=== PATIENT | female | born 1950 | race Caucasian/White ===

== ENCOUNTER 2018-12-04 19:20 | Inpatient (IN) | payer OTHER ==
[~2018-12-04] VITALS: Ht 157.5 cm; Wt 48.5 kg
--- OUTSIDE RECORDS SUMMARY | 2018-12-04 19:22 | XMS REPORT ---
Author Author [facility] Address Unknown Phone Unavailable Care Team Providers Care Dental Technician Instructor Name Role Phone Unavailable Unavailable Problems This patient has no known problems. Allergies, Adverse Reactions, Alerts This patient has no known allergies or adverse reactions. Medications This patient has no known medications. Results Test Description Test Time Test Comments Text Results Atomic Results Result Comments POC G3+ Art 2018-10-25 08:52:18 pH Art (test code=pH Art) 7.38 pH units 7.35-7.45 pCO2 Art (test code=pCO2 Art) 53.0 mmHg 35.0-45.0 pO2 Art (test code=pO2 Art) 65.0 mmHg 85.0-100.0 O2 Sat Art (test code=O2 Sat Art) 92.0 % 92.0-98.5 HCO3 Art (test code=HCO3 Art) 31.7 mmol/L 22.0-26.0 FIO2% (test code=FIO2%) 32.0 % Base Excess Arterial (test code=Base Excess Arterial) 7 mmol/L -2-2 Anders's Test (test code=Anders's Test) Pass Pass Del Sys (test code=Del Sys) Nasal Can Flow (LPM) (test code=Flow (LPM)) 3.0 Performing Site (test code=Performing Site) R Radial XR Chest 2 [id number] 08:44:00Patient: COREY OLIVAS Date/Time10/25/2018 08:34 CDTReason for ExamcopdReportRation: Dyspnea, hypertension and COPDChest 2 viewsIn comparison to prior chest x-ray dated 11/11/2017 bilateral pulmonary hyperexpansion and pleural parenchymal scarring is again noted. The heart is within normal limits in size. Pulmonary vascularity is normal. Partially calcified thoracic aorta is identified. A large hiatal hernia is again demonstrated. 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 COPD2. Bilateral pleural parenchymal scarring3. Large hiatal hernia; no significant interval change. Final Dictated by: MD Delacruz Gustavo MDictated DT/TM: 10/25/2018 8:42 amSigned by: MD Delacruz Gustavo MSigned (Electronic Signature): 10/25/2018 8:44 amER SCREEN FOR HIV 1/2 2018-04-16 12:29:00* Test Item Value Reference Range Comments HIV 1/2 AB (test code=SCRN HIV) NONREACTIVE NONREACTIVE This test is used for SCREENING purposes only. All reactive results are prelimenary and confirmation results will follow. BLOOD [id number] 06:41:00* Test Item Value Reference Range Comments Report Text (test code=Report Text) LOT 2018-04-101646 Report Text7 (test code=Report Text7) BLOOD CULTURES HELD FOR 5 DAYS BEFORE FINAL Report Text8 (test code=Report Text8) Report Text9 (test code=Report Text9) [employer] SUGGESTS THAT Report Text10 (test code=Report Text10) MOST CASES OF BACTEREMIA ARE DETECTED BY USING Report Text11 (test code=Report Text11) THREE SETS OF SEPARATELY COLLECTED BLOOD CULTURES. Report Text12 (test code=Report Text12) LOT [id number] Report Text13 (test code=Report Text13) CONVERSELY, A SINGLE BLOOD CULTURE MAY MISS Report Text14 (test code=Report Text14) INTERMITTENTLY OCCURRING BACTEREMIA AND MAKE Report Text15 (test code=Report Text15) IT DIFFICULT TO INTERPRET THE CLINICAL Report Text16 (test code=Report Text16) SIGNIFICANCE OF CERTAIN ISOLATED ORGANISMS. Report Text17 (test code=Report Text17) Report Text18 (test code=Report Text18) LOT [id number] Report Text19 (test code=Report Text19) COLLECTION SITE UNSPECIFIED Report Text20 (test code=Report Text20) DMB 2018-04-11 1138 Report Text21 (test code=Report Text21) NO GROWTH WITHIN 1 DAY Report Text22 (test code=Report Text22) PRELIMINARY REPORT Report Text23 (test code=Report Text23) Report Text24 (test code=Report Text24) CAN 2018-04-12 756 Report Text25 (test code=Report Text25) NO GROWTH WITHIN 2 DAYS Report Text26 (test code=Report Text26) PRELIMINARY REPORT Report Text27 (test code=Report Text27) Report Text28 (test code=Report Text28) J 2018-04-15 641 Report Text29 (test code=Report Text29) NO GROWTH WITHIN 5 DAYS Report Text30 (test code=Report Text30) FINAL REPORT BLOOD [id number] 06:41:00* Test Item Value Reference Range Comments Report Text (test code=Report Text) LOT 2018-04-101646 Report Text7 (test code=Report Text7) BLOOD CULTURES HELD FOR 5 DAYS BEFORE FINAL Report Text8 (test code=Report Text8) Report Text9 (test code=Report Text9) [employer] SUGGESTS THAT Report Text10 (test code=Report Text10) MOST CASES OF BACTEREMIA ARE DETECTED BY USING Report Text11 (test code=Report Text11) THREE SETS OF SEPARATELY COLLECTED BLOOD CULTURES. Report Text12 (test code=Report Text12) LOT [id number] Report Text13 (test code=Report Text13) CONVERSELY, A SINGLE BLOOD CULTURE MAY MISS Report Text14 (test code=Report Text14) INTERMITTENTLY OCCURRING BACTEREMIA AND MAKE Report Text15 (test code=Report Text15) IT DIFFICULT TO INTERPRET THE CLINICAL Report Text16 (test code=Report Text16) SIGNIFICANCE OF CERTAIN ISOLATED ORGANISMS. Report Text17 (test code=Report Text17) Report Text18 (test code=Report Text18) LOT 2018-04-10 1649 Report Text19 (test code=Report Text19) COLLECTION SITE UNSPECIFIED Report Text20 (test code=Report Text20) DMB 2018-04-11 1138 Report Text21 (test code=Report Text21) NO GROWTH WITHIN 1 DAY Report Text22 (test code=Report Text22) PRELIMINARY REPORT Report Text23 (test code=Report Text23) Report Text24 (test code=Report Text24) CAN 2018-04-12 756 Report Text25 (test code=Report Text25) NO GROWTH WITHIN 2 DAYS Report Text26 (test code=Report Text26) PRELIMINARY REPORT Report Text27 (test code=Report Text27) Report Text28 (test code=Report Text28) [facility] 2018-04-15 641 Report Text29 (test code=Report Text29) NO GROWTH WITHIN 5 DAYS Report Text30 (test code=Report Text30) FINAL REPORT ABDOMEN 2 [id number] 07:42:00[address] [id number] IMAGING REPORTPatient Name: COREY OLIVAS of Service: [id number]: 67 Sex: F Order #: [id number] Room: [facility] 2NDOB: 1950 X-Ray Number: [id number] Record Number: [id number] Hospital Number: [id number] Physician: JUSTO SYEDOrdering Physician: Brandie HARE.History: Abdomen pain.Technique: 3 supine and upright abdominal projections were obtained andreviewed.Findings:There is no specific acute appearing abdominal abnormality.There is moderate distal fecal stasis.There is no evidence to suggest obstruction or free air.The osseous structures appear intact.Impression:Moderate distal fecal stasis.Electronically Signed By: Atilio Zuniga M.D., 04/11/2018 7:39 AMLegally authenticated by CAREN Rahman 2018-04-11 07:39:46ISTAT CHEM [id number] 06:30:00* Test Item Value Reference Range Comments ISTATNA (test code=ISTATNA) 137 MMOL/L 137-145 ISTATK (test code=ISTATK) 3.8 MMOL/L 3.6-5.0 ISTATCL (test code=ISTATCL) 92 MMOL/L 98-107 ISTIONCA (test code=ISTIONCA) 1.14 MMOL/L 1.12-1.32 ISTCO2 (test code=ISTCO2) 36 MMOL/L 22-30 ISTATGLU (test code=ISTATGLU) 86 MG/DL 65-110 ISTATBUN (test code=ISTATBUN) 19.0 MG/DL 7.0-20.0 ISTCREA (test code=ISTCREA) 0.8 MG/DL 0.7-1.5 ISTATHCT (test code=ISTATHCT) 40 %PCV 37.0-52.0 ISTATHGB (test code=ISTATHGB) 13.6 G/DL 12.0-18.0 ISTANGAP (test code=ISTANGAP) 14 MMOL/L BG LAB ARTERIAL [id number] 16:54:00* Test Item Value Reference Range Comments SITE (test code=SITE) RBRAC SITE ALLENS (test code=ALLENS) N/A BGLAC (test code=BGLAC) 10.0 mg/dL 5.0-18.0 HEPATITIS C ANTIBODY [id number] 14:57:00* Test Item Value Reference Range Comments SCRN HCV (test code=SCRN HCV) NEGATIVE NEGATIVE Hepatitis C Antibody test is for screening purposes only. All reactives will be confirmed by additional testing. [id number] 14:11:00* Test Item Value Reference Range Comments WBC (test code=WBC) 9.3 K/UL 3.5-10.9 RBC (test code=RBC) 4.13 M/UL 4.0-5.0 HGB (test code=HGB) 12.7 G/DL 11.5-15.5 HCT (test code=HCT) 38.8 % 34-46 MCV (test code=MCV) 93.9 FL 80-98 MCH (test code=MCH) 30.8 PG 28-32 MCHC (test code=MCHC) 32.7 G/DL 32.5-36.5 RDW (test code=RDW) 13.1 % 11.5-14.5 PLT (test code=PLT) 236 K/UL 150-450 MPV (test code=MPV) 10.0 FL 7.4-10.4 MANDIFF (test code=MANDIFF) NO SCAN (test code=SCAN) NO NEUT% (test code=NEUT%) 76.6 % 40-75 LYMPH% (test code=LYMPH%) 13.0 % 24-44 MONO% (test code=MONO%) 8.5 % 0-13 EOS% (test code=EOS%) 1.4 % 0-4 BASO % (test code=BASO%) 0.1 % 0-2 IG (test code=IG) 0 % 0-1 IG% (test code=IG%) 0.4 % 0-1 IG%=Metamyelocytes, Myelocytes, and Promyelocytes. (Immature neutrophils not including "bands".) > 3% IG indicates risk of sepsis NRBC% (test code=NRBC%) 0 /100 WBC ABS NEUT (test code=NEUT) 7.1 K/UL 1.2-7.2 CHEST 1 VIEW [id number] 14:04:00BA[address] [id number] IMAGING REPORTPatient Name: COREY OLIVAS Anuja of Service: [id number]: 67 Sex: F Order #: [id number] [facility]1951 X-Ray Number: [id number] Record Number: [id number] Hospital Number: [id number] Physician: Sapna COSTA Physician: JH ERICKSONHISTORY: Cough without fever. . Cough. Shortness of breath.COMPARISON: 03/11/2018TECHNIQUE: Portable chest 1 viewFINDINGS:The patient is rotated to the right. The cardiac silhouette is uppernormal. The lungs are hyperexpanded with background changes of COPD. Thereis atherosclerosis of the aortic arch. There is fusion hardware within themid thoracic spine.IMPRESSION:Background changes of COPD without acute abnormality. Electronically Signed By: Fredy Fagan M.D., 04/10/2018 2:01 PMLegally authent icated by JOSELINE HERNANDEZ 2018-04-10 14:01:33BG LAB ARTERIAL [id number] 13:25:00* Test Item Value Reference Range Comments SITE (test code=SITE) LEFT RAD SITE ALLENS (test code=ALLENS) POS BGLAC (test code=BGLAC) 7 mg/dL 5.0-18.0 BLOOD GAS [id number] 13:22:00* Test Item Value Reference Range Comments SITE (test code=SITE) LEFT RAD SITE ALLENS (test code=ALLENS) POS O2 EQUIP (test code=O2 EQUIP) NASAL CANNULA O2-DEVICE L/M (test code=L/M) 3 L/M PH (test code=BGPH) 7.43 7.35-7.45 PCO2 (test code=PCO2) 50 MMHG 34.0-45.0 PO2 (test code=PO2) 99 MMHG 79-87 HCO3 (test code=HCO3) 33.2 mmol/L 22.0-26.0 BE (test code=BE) 7.6 mmol/L -2.0-2.0 THB (test code=THB) 11.6 G/DL 12-16 % 02 HB (test code=ABGSAT) 95.8 % 96.0-100.0 %COHB (test code=BGCO) 1.2 % <1.5 % MET HB (test code=%MET HB) 0.9 % 0.4-1.5 CAO2 (test code=CAO2) 15.8 VOL% 15.7-21.6 PF/RATIO (test code=PF/RATIO) 330.0 BLOOD [id number] 07:46:00* Test Item Value Reference Range Comments Report Text (test code=Report Text) [facility] 2018-03-11 345 Report Text7 (test code=Report Text7) BLOOD CULTURES HELD FOR 5 DAYS BEFORE FINAL Report Text8 (test code=Report Text8) Report Text9 (test code=Report Text9) [employer] SUGGESTS THAT Report Text10 (test code=Report Text10) MOST CASES OF BACTEREMIA ARE DETECTED BY USING Report Text11 (test code=Report Text11) THREE SETS OF SEPARATELY COLLECTED BLOOD CULTURES. Report Text12 (test code=Report Text12) [facility] 2018-03-11 346 Report Text13 (test code=Report Text13) CONVERSELY, A SINGLE BLOOD CULTURE MAY MISS Report Text14 (test code=Report Text14) INTERMITTENTLY OCCURRING BACTEREMIA AND MAKE Report Text15 (test code=Report Text15) IT DIFFICULT TO INTERPRET THE CLINICAL Report Text16 (test code=Report Text16) SIGNIFICANCE OF CERTAIN ISOLATED ORGANISMS. Report Text17 (test code=Report Text17) Report Text18 (test code=Report Text18) [facility] 2018-03-11 347 Report Text19 (test code=Report Text19) DRAWN FROM RIGHT HAND Report Text20 (test code=Report Text20) Report Text21 (test code=Report Text21) [facility] 2018-03-12 634 Report Text22 (test code=Report Text22) NO GROWTH WITHIN 1 DAY Report Text23 (test code=Report Text23) PRELIMINARY REPORT Report Text24 (test code=Report Text24) Report Text25 (test code=Report Text25) [facility] 2018-03-13 632 Report Text26 (test code=Report Text26) NO GROWTH WITHIN 2 DAYS Report Text27 (test code=Report Text27) PRELIMINARY REPORT Report Text28 (test code=Report Text28) Report Text29 (test code=Report Text29) [facility] 2018-03-16 746 Report Text30 (test code=Report Text30) NO GROWTH WITHIN 5 DAYS Report Text31 (test code=Report Text31) FINAL REPORT ER SCREEN FOR HIV 09:56:00* Test Item Value Reference Range Comments HIV 1/2 AB (test code=SCRN HIV) NONREACTIVE NONREACTIVE This test is used for SCREENING purposes only. All reactive results are prelimenary and confirmation results will follow. BLOOD [id number] 09:54:00* Test Item Value Reference Range Comments Report Text (test code=Report Text) [facility] 2018-03-11 345 Report Text7 (test code=Report Text7) BLOOD CULTURES HELD FOR 5 DAYS BEFORE FINAL Report Text8 (test code=Report Text8) Report Text9 (test code=Report Text9) [employer] SUGGESTS THAT Report Text10 (test code=Report Text10) MOST CASES OF BACTEREMIA ARE DETECTED BY USING Report Text11 (test code=Report Text11) THREE SETS OF SEPARATELY COLLECTED BLOOD CULTURES. Report Text12 (test code=Report Text12) [facility] 2018-03-11 346 Report Text13 (test code=Report Text13) CONVERSELY, A SINGLE BLOOD CULTURE MAY MISS Report Text14 (test code=Report Text14) INTERMITTENTLY OCCURRING BACTEREMIA AND MAKE Report Text15 (test code=Report Text15) IT DIFFICULT TO INTERPRET THE CLINICAL Report Text16 (test code=Report Text16) SIGNIFICANCE OF CERTAIN ISOLATED ORGANISMS. Report Text17 (test code=Report Text17) Report Text18 (test code=Report Text18) [facility] 2018-03-11 347 Report Text19 (test code=Report Text19) DRAWN FROM LEFT FOREARM Report Text20 (test code=Report Text20) Report Text21 (test code=Report Text21) [facility] 2018-03-12 634 Report Text22 (test code=Report Text22) NO GROWTH WITHIN 1 DAY Report Text23 (test code=Report Text23) PRELIMINARY REPORT Report Text24 (test code=Report Text24) Report Text25 (test code=Report Text25) [facility] 2018-03-13 954 Report Text26 (test code=Report Text26) Report Text27 (test code=Report Text27) 2 BLOOD CULTURE BOTTLES WERE COLLECTED, ONLY Report Text28 (test code=Report Text28) ONE BOTTLE IS POSITIVE FOR GROWTH Report Text29 (test code=Report Text29) Report Text30 (test code=Report Text30) [facility] 2018-03-13 955 Report Text31 (test code=Report Text31) COAGULASE NEGATIVE STAPHYLOCOCCUS ISOLATED Report Text32 (test code=Report Text32) CONSIDERED CONTAMINATION, NO SENSITIVITY Report Text33 (test code=Report Text33) PERFORMED. FINAL REPORT ISTAT CHEM [id number] 13:45:00* Test Item Value Reference Range Comments ISTATNA (test code=ISTATNA) 143 MMOL/L 137-145 ISTATK (test code=ISTATK) 3.5 MMOL/L 3.6-5.0 ISTATCL (test code=ISTATCL) 99 MMOL/L 98-107 ISTIONCA (test code=ISTIONCA) 1.12 MMOL/L 1.12-1.32 ISTCO2 (test code=ISTCO2) 32 MMOL/L 22-30 ISTATGLU (test code=ISTATGLU) 116 MG/DL 65-110 ISTATBUN (test code=ISTATBUN) 21.0 MG/DL 7.0-20.0 ISTCREA (test code=ISTCREA) 0.8 MG/DL 0.7-1.5 ISTATHCT (test code=ISTATHCT) 39 %PCV 37.0-52.0 ISTATHGB (test code=ISTATHGB) 13.3 G/DL 12.0-18.0 ISTANGAP (test code=ISTANGAP) 16 MMOL/L CHEST 1 VIEW [id number] 08:23:00BAPTIST [address] [id number] IMAGING REPORTPatient Name: COREY OLIVAS of Service: [id number]: 67 Sex: F Order #: [id number] Room: QERDOB: 1950 X-Ray Number: [id number] Record Number: [id number] Hospital Number: [id number] Physician: SIDNEY GUNNOrdersandy Physician: CHAN VANESSA 1 VIEW PORTABLE 03/11/2018 2:08 AMHistory: sob, cough, bronchitisComparisons: 11/18/2017FINDINGS:Heart size is normal.There is no focal lung consolidation.There is no definite pleural effusion or pneumothorax identified.Hyperinflation suggests COPD.There are postsurgical changes of the mid to lower thoracic spine.There is a large hiatal hernia present.IMPRESSION:No acute cardiopulmonary process.Large hiatal hernia.EMERGENT INTERPRETATION PROVIDED BY [facility].Electronically Signed By: Shaggy Lamb M.D., 03/11/2018 8:21 AMLegally authenticated by AMY WRIGHT 2018-03-11 08:21:26BMP, BASIC METABOLIC [id number] 05:48:00* Test Item Value Reference Range Comments SODIUM (test code=NA) 141 MMOL/L 137-145 K+ (test code=KSERUM) 4.2 MMOL/L 3.5-5.1 PLEASE NOTE NEW REFERENCE RANGE(S) IN EFFECT EFFECTIVE 10/10/2009 - NEW [employer] ([employer] 5600) CHLORIDE (test code=CL) 106 MMOL/L 98-107 CO2 (test code=CO2) 36 MMOL/L 22-30 BUN (test code=BUN) 22 MG/DL 7-17 CREA (test code=CREA) 0.6 MG/DL 0.7-1.2 GLUCOSE (test code=GLUCOSE) 146 MG/DL 70-99 Fasting glucose normal <100 MG/DL- [employer] recommendation CALCIUM (test code=CABLOOD) 8.9 MG/DL 8.4-10.2 GFR (test code=GFR) 106 mL/min/1.73m2 A GFR of >90 mL/min/1.73m2 is considered normal. [id number] 05:10:00* Test Item Value Reference Range Comments WBC (test code=WBC) 8.0 K/UL 3.5-10.9 RBC (test code=RBC) 3.66 M/UL 4.0-5.0 HGB (test code=HGB) 11.0 G/DL 11.5-15.5 HCT (test code=HCT) 33.9 % 34-46 MCV (test code=MCV) 92.6 FL 80-98 MCH (test code=MCH) 30.1 PG 28-32 MCHC (test code=MCHC) 32.4 G/DL 32.5-36.5 RDW (test code=RDW) 13.2 % 11.5-14.5 PLT (test code=PLT) 196 K/UL 150-450 MPV (test code=MPV) 9.9 FL 7.4-10.4 MANDIFF (test code=MANDIFF) NO SCAN (test code=SCAN) NO NEUT% (test code=NEUT%) 80.1 % 40-75 LYMPH% (test code=LYMPH%) 14.6 % 24-44 MONO% (test code=MONO%) 2.3 % 0-13 EOS% (test code=EOS%) 2.5 % 0-4 BASO % (test code=BASO%) 0.4 % 0-2 IG (test code=IG) 0 % 0-1 IG% (test code=IG%) 0.1 % 0-1 IG%=Metamyelocytes, Myelocytes, and Promyelocytes. (Immature neutrophils not including "bands".) > 3% IG indicates risk of sepsis NRBC% (test code=NRBC%) 0 /100 WBC ABS NEUT (test code=NEUT) 6.4 K/UL 1.2-7.2 HEPATITIS C ANTIBODY [id number] 04:38:00* Test Item Value Reference Range Comments SCRN HCV (test code=SCRN HCV) NEGATIVE NEGATIVE Hepatitis C Antibody test is for screening purposes only. All reactives will be confirmed by additional testing. [id number] 02:44:00* Test Item Value Reference Range Comments WBC (test code=WBC) 9.0 K/UL 3.5-10.9 RBC (test code=RBC) 3.94 M/UL 4.0-5.0 HGB (test code=HGB) 12.1 G/DL 11.5-15.5 HCT (test code=HCT) 37.6 % 34-46 MCV (test code=MCV) 95.4 FL 80-98 MCH (test code=MCH) 30.7 PG 28-32 MCHC (test code=MCHC) 32.2 G/DL 32.5-36.5 RDW (test code=RDW) 13.2 % 11.5-14.5 PLT (test code=PLT) 217 K/UL 150-450 MPV (test code=MPV) 10.0 FL 7.4-10.4 MANDIFF (test code=MANDIFF) NO SCAN (test code=SCAN) NO NEUT% (test code=NEUT%) 61.5 % 40-75 LYMPH% (test code=LYMPH%) 25.3 % 24-44 MONO% (test code=MONO%) 7.8 % 0-13 EOS% (test code=EOS%) 4.8 % 0-4 BASO % (test code=BASO%) 0.4 % 0-2 IG (test code=IG) 0 % 0-1 IG% (test code=IG%) 0.2 % 0-1 IG%=Metamyelocytes, Myelocytes, and Promyelocytes. (Immature neutrophils not including "bands".) > 3% IG indicates risk of sepsis NRBC% (test code=NRBC%) 0 /100 WBC ABS NEUT (test code=NEUT) 5.5 K/UL 1.2-7.2 BG LAB VENOUS [id number] 02:20:00* Test Item Value Reference Range Comments SITE (test code=SITE) VENOUS SITE BGLACVEN (test code=BGLACVEN) 5.0 mg/dL 6.0-18.0 VENOUS BLOOD [id number] 02:19:00* Test Item Value Reference Range Comments SITE (test code=SITE) VENOUS SITE ALLENS (test code=ALLENS) NA O2 EQUIP (test code=O2 EQUIP) NC O2-DEVICE L/M (test code=L/M) 3 L/M FIO2 (test code=FIO2) 32 % PH (test code=MVPH) 7.34 7.32-7.42 PCO2 (test code=MVPCO2) 58 MMHG 41.0-51.0 PO2 (test code=MVPO2) 44 MMHG MVHCO3 (test code=MVHCO3) 31.3 24.0-28.0 BE (test code=MVBE) 4.4 -2.0-+2.0 THB (test code=MVTHB) 10.4 G/DL 12-16 %O2 HB (test code=MV%O2 HB) 81.6 % 40.0-70.0 %COHB (test code=MV%COHB) 2.1 % %MET HB (test code=MV%METHB) 0.8 % 0.4-1.5 [id number] 01:34:00HEART RATE: 96 bpmRR Interval: 625 msAtrial Rate: 96 msP-R Interval: 158 msP Duration: 121 msP Horizontal Gresham: -3 degP Front Gresham: 81 degQ Onset: 499 msQRSD Interval: 82 msQT Interval: 335 msQTcB: 424 msQTcF: 392 msQRS Horizontal Gresham: -30 degQRS Gresham: 84 degI-40 Horizontal Gresham: 12 degI-40 Front Gresham: 61 degT-40 Horizontal Gresham: -44 degT-40 Front Gresham: 73 degT Horizontal Gresham: 29 degT Wave Gresham: 47 degS-T Horizontal Gresham: 66 degS-T Front Gresham: -26 degECG Severity: - NORMAL ECG -ECG Impression: Sinus rhythmBLOOD CULTURE 2017-11-23 07:18:00* Test Item Value Reference Range Comments Report Text (test code=Report Text) [facility] 2017-11-182346 Report Text7 (test code=Report Text7) BLOOD CULTURES HELD FOR 5 DAYS BEFORE FINAL Report Text8 (test code=Report Text8) Report Text9 (test code=Report Text9) [employer] SUGGESTS THAT Report Text10 (test code=Report Text10) MOST CASES OF BACTEREMIA ARE DETECTED BY USING Report Text11 (test code=Report Text11) THREE SETS OF SEPARATELY COLLECTED BLOOD CULTURES. Report Text12 (test code=Report Text12) [facility] 2017-11-182347 Report Text13 (test code=Report Text13) CONVERSELY, A SINGLE BLOOD CULTURE MAY MISS Report Text14 (test code=Report Text14) INTERMITTENTLY OCCURRING BACTEREMIA AND MAKE Report Text15 (test code=Report Text15) IT DIFFICULT TO INTERPRET THE CLINICAL Report Text16 (test code=Report Text16) SIGNIFICANCE OF CERTAIN ISOLATED ORGANISMS. Report Text17 (test code=Report Text17) Report Text18 (test code=Report Text18) [facility] 2017-11-18 Report Text19 (test code=Report Text19) COLLECTION SITE UNSPECIFIED Report Text20 (test code=Report Text20) [facility] 2017-11-19 633 Report Text21 (test code=Report Text21) NO GROWTH WITHIN 1 DAY Report Text22 (test code=Report Text22) PRELIMINARY REPORT Report Text23 (test code=Report Text23) Report Text24 (test code=Report Text24) [facility] 2017-11-20 716 Report Text25 (test code=Report Text25) NO GROWTH WITHIN 2 DAYS Report Text26 (test code=Report Text26) PRELIMINARY REPORT Report Text27 (test code=Report Text27) Report Text28 (test code=Report Text28) [facility] 2017-11-23 718 Report Text29 (test code=Report Text29) NO GROWTH WITHIN 5 DAYS Report Text30 (test code=Report Text30) FINAL REPORT BLOOD [id number] 07:18:00* Test Item Value Reference Range Comments Report Text (test code=Report Text) [facility] 2017-11-182347 Report Text7 (test code=Report Text7) BLOOD CULTURES HELD FOR 5 DAYS BEFORE FINAL Report Text8 (test code=Report Text8) Report Text9 (test code=Report Text9) [employer] SUGGESTS THAT Report Text10 (test code=Report Text10) MOST CASES OF BACTEREMIA ARE DETECTED BY USING Report Text11 (test code=Report Text11) THREE SETS OF SEPARATELY COLLECTED BLOOD CULTURES. Report Text12 (test code=Report Text12) [facility] 2017-11-18 234 Report Text13 (test code=Report Text13) CONVERSELY, A SINGLE BLOOD CULTURE MAY MISS Report Text14 (test code=Report Text14) INTERMITTENTLY OCCURRING BACTEREMIA AND MAKE Report Text15 (test code=Report Text15) IT DIFFICULT TO INTERPRET THE CLINICAL Report Text16 (test code=Report Text16) SIGNIFICANCE OF CERTAIN ISOLATED ORGANISMS. Report Text17 (test code=Report Text17) Report Text18 (test code=Report Text18) [facility] 2017-11-18 2350 Report Text19 (test code=Report Text19) COLLECTION SITE UNSPECIFIED Report Text20 (test code=Report Text20) [facility] 2017-11-19 633 Report Text21 (test code=Report Text21) NO GROWTH WITHIN 1 DAY Report Text22 (test code=Report Text22) PRELIMINARY REPORT Report Text23 (test code=Report Text23) Report Text24 (test code=Report Text24) [facility] 2017-11-20 716 Report Text25 (test code=Report Text25) NO GROWTH WITHIN 2 DAYS Report Text26 (test code=Report Text26) PRELIMINARY REPORT Report Text27 (test code=Report Text27) Report Text28 (test code=Report Text28) [facility] 2017-11-23 718 Report Text29 (test code=Report Text29) NO GROWTH WITHIN 5 DAYS Report Text30 (test code=Report Text30) FINAL REPORT [facility] ARTERIAL [id number] 14:07:00* Test Item Value Reference Range Comments SITE (test code=SITE) RRA SITE CELE (test code=ALLENS) POS BGLAC (test code=BGLAC) 5.0 mg/dL 5.0-18.0 CHEST XR 2 [id number] 07:27:00[address] [id number] IMAGING REPORTPatient Name: COREY OLIVAS of Service: [id number]: 67 Sex: F Order #: [id number] [facility] 1950 X-[facility] Number: [id number] Record Number: [id number] Hospital Number: [id number] Physician: DEBBIE ALIOrdering Physician: EMMA PAYNE XR 2 VIEWS 11/18/2017 9:48 PMHistory: COPD, shortness of breath.Comparisons: 12/01/2015FINDINGS:Heart size is normal.There is no focal lung consolidation.There is no definite pleural effusion or pneumothorax identified.Hyperinflation suggests COPD.There is a large hiatal hernia.There are postsurgical changes of the mid to lower thoracic spine.IMPRESSION:No acute cardiopulmonary process.EMERGENT INTERPRETATION PROVIDED BY [facility].Electronically Signed By: Shaggy Lamb M.D., 11/19/2017 7:25 AMLegally authenticated by AMY WRIGHT 2017-11-19 07:25:19BMP, BASIC METABOLIC [id number] 22:31:00* Test Item Value Reference Range Comments SODIUM (test code=NA) 141 MMOL/L 137-145 K+ (test code=KSERUM) 4.2 MMOL/L 3.5-5.1 PLEASE NOTE NEW REFERENCE RANGE(S) IN EFFECT EFFECTIVE 10/10/2009 - NEW ANALYZER (VITROS 5600) CHLORIDE (test code=CL) 99 MMOL/L 98-107 CO2 (test code=CO2) 35 MMOL/L 22-30 BUN (test code=BUN) 27 MG/DL 7-17 CREA (test code=CREA) 0.8 MG/DL 0.7-1.2 GLUCOSE (test code=GLUCOSE) 106 MG/DL 70-99 Fasting glucose normal <100 MG/DL- [employer] recommendation CALCIUM (test code=CABLOOD) 9.3 MG/DL 8.4-10.2 GFR (test code=GFR) 76 mL/min/1.73m2 A GFR of >90 mL/min/1.73m2 is considered normal. [id number] 22:19:00* Test Item Value Reference Range Comments WBC (test code=WBC) 12.5 K/UL 3.5-10.9 RBC (test code=RBC) 3.92 M/UL 4.0-5.0 HGB (test code=HGB) 12.5 G/DL 11.5-15.5 HCT (test code=HCT) 37.6 % 34-46 MCV (test code=MCV) 95.9 FL 80-98 MCH (test code=MCH) 31.9 PG 28-32 MCHC (test code=MCHC) 33.2 G/DL 32.5-36.5 RDW (test code=RDW) 14.6 % 11.5-14.5 PLT (test code=PLT) 256 K/UL 150-450 MPV (test code=MPV) 9.6 FL 7.4-10.4 MANDIFF (test code=MANDIFF) NO SCAN (test code=SCAN) NO NEUT% (test code=NEUT%) 71.7 % 40-75 LYMPH% (test code=LYMPH%) 18.1 % 24-44 MONO% (test code=MONO%) 7.1 % 0-13 EOS% (test code=EOS%) 2.5 % 0-4 BASO % (test code=BASO%) 0.2 % 0-2 IG (test code=IG) 0 % 0-1 IG% (test code=IG%) 0.4 % 0-1 IG%=Metamyelocytes, Myelocytes, and Promyelocytes. (Immature neutrophils not including "bands".) > 3% IG indicates risk of sepsis ABS NEUT (test code=NEUT) 9.0 K/UL 1.2-7.2 BLOOD GAS [id number] 21:58:00* Test Item Value Reference Range Comments SITE (test code=SITE) RRAD SITE ALLEN (test code=ALLENS) POS O2 EQUIP (test code=O2 EQUIP) NC O2-DEVICE L/M (test code=L/M) 4 L/M FIO2 (test code=FIO2) 36 % PH (test code=BGPH) 7.37 7.35-7.45 PCO2 (test code=PCO2) 65 MMHG 34.0-45.0 PO2 (test code=PO2) 184 MMHG 79-87 HCO3 (test code=HCO3) 37.6 mmol/L 22.0-26.0 BE (test code=BE) 10.1 mmol/L -2.0-2.0 THB (test code=THB) 11.5 G/DL 12-16 % 02 HB (test code=ABGSAT) 93.6 % 96.0-100.0 %COHB (test code=BGCO) 3.5 % <1.5 % MET HB (test code=%MET HB) 0.2 % 0.4-1.5 CAO2 (test code=CAO2) 15.5 VOL% 15.7-21.6 PF/RATIO (test code=PF/RATIO) 511.0 BG LAB ARTERIAL [id number] 21:58:00* Test Item Value Reference Range Comments SITE (test code=SITE) RRAD SITE ALLENS (test code=ALLENS) POS BGLAC (test code=BGLAC) 5.0 mg/dL 5.0-18.0 CT THORAX W/O [id number] 09:26:00[address] [id number] IMAGING REPORTPatient Name: Celina OLIVAS of Service: [id number]: 65 Sex: F Order #: [id number] Room: OPEDOB: 1950 X-Ray Number: [id number] Record Number: [id number] Hospital Number: [id number] Physician: Liza KRISHNAMURTHYering Physician: CINDY KRISHNAMURTHY chest.History: Short of breath. Smoking history.Technique: Unenhanced CT axial images with sagittal and coronal reformattedimages. This CT exam was performed using one or more of the following dosereduction techniques: Automated exposure control, adjustment of the MAand/or KV according to patient size or use of iterative reconstructiontechnique.Comparison: December 02, 2015.Findings:The lungs are emphysematous. There is no specific pulmonary parenchymalnodule or mass. There is some pleural scarring in the left baseposteriorly.There is a large retrocardiac hiatal hernia. There is no hilar ormediastinal adenopathy. There is aortic and coronary vascular disease.There is evidence of thoracic fusion distally.Impression:COPD and scarring.Mild vascular disease.Electronically Signed By: Atilio Zuniga M.D., 07/23/2016 9:23 AMLegally authenticated by CAREN Rahman 2016-07-23 09:23:58
[2018-12-04] MEDS ORDERED: ONDANSETRON HCL INJ 2MG/ML 2ML 2 MG/ML VIAL IV STA (19:24)
[2018-12-04] MEDS ORDERED: ALBUTEROL/IPRATROPIUM 3 ML NEB NEB ONE (20:00)
[2018-12-04] MEDS ORDERED: METHYLPREDNISOLONE SOD SUCC 125 MG/2ML VIAL IV ONE (20:00)
--- NOTE | 2018-12-04 20:05 | Diagnostic Imaging Report ---
EXAMINATION: CHEST SINGLE (NOT PORTABLE) INDICATION: ^CHEST PAIN ^[id number] ^1951 ^Y COMPARISON: None FINDINGS: AP view TUBES and LINES: None. LUNGS and pleura: Lungs are hyperinflated. Biapical scarring. Suspected small left pleural effusion. No pneumothorax. Large retrocardiac opacification, likely a hiatal hernia. HEART AND MEDIASTINUM: The cardiomediastinal silhouette is unremarkable. BONES AND SOFT TISSUES: No acute osseous lesion. Midthoracic spine fusion hardware. Soft tissues are unremarkable. UPPER ABDOMEN: No free air under the diaphragm. IMPRESSION: Hyperinflated lungs, suggestive of emphysematous changes. Small left pleural effusion. Large hiatal hernia. Signed by: Dr. Nehemias Cr MD on 12/04/2018 8:02 PM
--- NOTE | 2018-12-04 20:14 | NUR ---
LISA, RT NOTIFIED AND AWARE OF STAT DUONEB TREATMENT.
[2018-12-04 20:42] LABS: BASOPHILS % 0.2 % (0.0-1.0); EOSINOPHILS % 0.3 % (0.0-6.0); HEMOGLOBIN 11.4 g/dL (12.0-16.0); LYMPHOCYTES # (AUTO) 2.2 (1.0-3.2); LYMPHOCYTES % 24.1 % (18.0-39.1); MEAN CORPUSCULAR HEMOGLOBIN 30.2 pg (28-32); MEAN CORPUSCULAR HGB CONC 32.6 g/dL (31-35); MEAN CORPUSCULAR VOLUME 92.6 fL (81-99); MONOCYTES # (AUTO) 0.8 (0.2-0.8); MONOCYTES % 8.6 % (4.4-11.3); NEUTROPHILS % 66.5 % (38.7-80.0); PLATELET COUNT 229 x10e3/uL (140-360); RED BLOOD COUNT 3.78 x10e6/uL (3.6-5.1); RED CELL DISTRIBUTION WIDTH 13.2 % (11.7-14.4)
[2018-12-04 21:00] LABS: ALBUMIN 3.8 g/dL (3.5-5.0); ALBUMIN/GLOBULIN RATIO 1.3 (0.8-2.0); ANION GAP 14.4 mmol/L (8-16); CALCIUM 9.9 mg/dL (8.4-10.2); CREATININE, SERUM 0.95 mg/dL (0.57-1.11); POTASSIUM 4.4 mmol/L (3.5-5.1)
[2018-12-04 21:06] LABS: CREATINE KINASE MB 3.8 ng/mL (0-5.0)
[2018-12-04] MEDS ORDERED: ALBUTEROL SULF 0.083% NEB SOLN 3 ML NEB NEB PRN (21:15)
[2018-12-05] MEDS ORDERED: METHYLPREDNISOLONE SOD SUCC 40 MG/ML VIAL 1ML IV SCH ×3 (03:00→07:45)
--- NOTE | 2018-12-05 03:21 | NUR ---
report given to juliet weber
[2018-12-05] MEDS: METHYLPREDNISOLONE SOD SUCC 40 MG/ML VIAL 1ML IV SCH ×3 (08:54→20:33)
--- NOTE | 2018-12-05 09:00 | NUR ---
DR MRASHALL AT PT BEDSIDE
[2018-12-05] MEDS ORDERED: NICOTINE 21 MG/EA PATCH TOP PRN (09:15)
[2018-12-05] MEDS: ALBUTEROL/IPRATROPIUM 3 ML NEB NEB SCH ×2 (09:15→19:59)
[2018-12-05] MEDS: CEFTRIAXONE SOD 1 GM/NS 50 ML 50 ML IV SCH (10:36)
[2018-12-05] MEDS ORDERED: SIMVASTATIN20 MG PO (10:54)
[2018-12-05] MEDS ORDERED: LORATADINE10 MG PO (10:54)
[2018-12-05] MEDS ORDERED: HYDROXYZINE HCL25 MG PO (10:54)
[2018-12-05] MEDS ORDERED: HYDROCHLOROTH12.5 MG PO (10:54)
[2018-12-05] MEDS ORDERED: TRELEGY IH (10:54)
[2018-12-05] MEDS ORDERED: PANTOPRAZOLE SO40 MG PO (10:54)
[2018-12-05] MEDS ORDERED: ALBUTEROL2.5 MG/3 M IH (10:54)
[2018-12-05] MEDS ORDERED: IPRATROPIU0.2 MG/1 M IH (10:54)
[2018-12-05] MEDS ORDERED: TRAZODONE HCL50 MG PO (10:54)
[2018-12-05] MEDS ORDERED: MOVANTIK PO (10:54)
[2018-12-05] MEDS ORDERED: CITALOPRAM HBR40 MG PO (10:54)
[2018-12-05] MEDS ORDERED: FLUTICASONE PRO16 GM (10:54)
[2018-12-05] MEDS ORDERED: PRAMIPEXOLE D0.25 MG PO (10:54)
[2018-12-05] MEDS ORDERED: TIZANIDINE HCL4 MG PO (10:54)
[2018-12-05] MEDS ORDERED: VENTOLIN HFA18 GM IH (10:54)
[2018-12-05] MEDS ORDERED: GABAPENTIN300 MG PO (10:54)
[2018-12-05] MEDS ORDERED: METOPROLOL TART25 MG PO (10:54)
[2018-12-05] MEDS ORDERED: VITAMIN C500 M1 PEG (10:59)
[2018-12-05] MEDS ORDERED: CALCIUM 500+D1 EACH PO (10:59)
[2018-12-05] MEDS ORDERED: FERROUS SULFAT325 MG PO (10:59)
[2018-12-05] MEDS ORDERED: DALIRESP500 MCG PO (10:59)
[2018-12-05] MEDS ORDERED: FISH OIL 1,2001 EACH PO (10:59)
[2018-12-05] MEDS ORDERED: GARLIC1000 MG PO (10:59)
[2018-12-05] MEDS ORDERED: ASPIRIN CHEW81 MG PO (10:59)
[2018-12-05] MEDS ORDERED: ALBUTEROL SULF 0.083% NEB SOLN 3 ML NEB INH SCH (11:15)
--- NOTE | 2018-12-05 11:27 | Diagnostic Imaging Report ---
EXAM: CT Chest WITHOUT intravenous contrast 12/05/2018 9:01 AM INDICATION: Shortness of breath COMPARISON: Chest radiograph of 12/04/2018 TECHNIQUE: Chest was scanned utilizing a multidetector helical scanner from the lung apex through the level of the adrenal glands without administration of IV contrast. Coronal and sagittal reformations were obtained. Routine protocol was performed. IV CONTRAST: None RADIATION DOSE: Total DLP: 197.7 mGy*cm. Dose modulation, iterative reconstruction, and/or weight based adjustment of the mA/kV was utilized to reduce the radiation dose to as low as reasonably achievable. COMPLICATIONS: None FINDINGS: LINES/ TUBES: None. LUNGS AND AIRWAYS: Small amount of debris in the distal left mainstem and left lower lobe bronchi. No focal consolidation or pulmonary edema. The lungs are hyperinflated. There is bilateral upper lobe predominant centrilobular and paraseptal emphysema. Bibasilar left greater than right dependent subsegmental atelectasis. PLEURA: The pleural spaces are clear. HEART AND MEDIASTINUM: The thyroid gland is normal. No supraclavicular, axillary, mediastinal, or hilar lymphadenopathy. The heart is not enlarged. No pericardial effusion. Atherosclerotic calcifications of the aorta, great vessels, and coronary arteries. UPPER ABDOMEN: Limited noncontrast enhanced images of the upper abdomen demonstrate a large hiatal hernia with the majority of the stomach above the diaphragm. Calcified granuloma in the liver and scattered granulomas in the spleen. No focal abnormality of the partially visualized kidneys, adrenals, and pancreas. BONES: No acute osseous injury. Postoperative findings of T8 corpectomy and fusion from T7 to T9. Irregularity of the posterior left sixth rib, possibly posttraumatic. SOFT TISSUES: Unremarkable. IMPRESSION: Hyperinflated lungs and bilateral upper lobe predominant emphysema. Small amount of debris in the distal left mainstem bronchus and left lower lobe bronchus. Large hiatal hernia with the majority of the stomach above the diaphragm may predispose to aspiration. Atherosclerotic arterial calcifications including of the coronary arteries. Signed by: Loida Magallanes MD on 12/05/2018 11:24 AM
[2018-12-05] MEDS ORDERED: ALBUTEROL SULF 0.083% NEB SOLN 3 ML NEB INH PRN (11:30)
[2018-12-05] MEDS: AZITHROMYCIN 500MG/NS 250 ML 250 ML IV SCH (11:39)
--- NOTE | 2018-12-05 14:50 | NUR ---
Received patient from ER. Patient in stable condition, no signs of distress or c/o pain at this time. All safety measures in place. Call light placed within reach. Will continue to monitor.
[2018-12-05 15:19] VITALS: BP 123/63
[2018-12-05 15:20] VITALS: BP 123/63
[2018-12-05 15:44] VITALS: BP 123/63
[2018-12-05] MEDS: ASCORBIC ACID 500 MG TAB PEG SCH ×2 (16:05→20:33)
[2018-12-05] MEDS: TIZANIDINE HCL 4 MG TAB PO SCH ×2 (16:05→20:33)
[2018-12-05] MEDS: METOPROLOL TARTRATE 25 MG TAB PO SCH (16:44)
--- NOTE | 2018-12-05 19:07 | NUR ---
Report given to night nurse. Patient resting in bed, in stable condition, no c/o pain or signs of distress at this time. All safety measures in place.
[2018-12-05 20:00] VITALS: BP 111/60
[2018-12-05] MEDS: TRAZODONE HCL 50 MG TAB PO SCH (20:33)
[2018-12-05] MEDS: SIMVASTATIN 20 MG TAB PO SCH (20:33)
[2018-12-05] MEDS: HYDROXYZINE HCL 25 MG TAB PO SCH (20:33)
[2018-12-05 21:00] VITALS: BP 111/60
[2018-12-05 23:45] VITALS: BP 136/68
[2018-12-06] MEDS: ALBUTEROL/IPRATROPIUM 3 ML NEB NEB SCH ×4 (00:50→19:38)
[2018-12-06] MEDS: METHYLPREDNISOLONE SOD SUCC 40 MG/ML VIAL 1ML IV SCH ×4 (03:03→21:43)
[2018-12-06 04:00] VITALS: BP 110/56
[2018-12-06] MEDS: [UNRECOGNIZED DRUG - OTHER] IH SCH (06:00)
--- NOTE | 2018-12-06 07:10 | NUR ---
RCD PT AT BED PT IS ALERT AND ORIENTED PT RESTING ON BED IV PATENT BY SALINE FLUSH BED LOW AND LOCKED CALL LIGHT IN REACH
[2018-12-06 08:00] VITALS: BP 122/66
[2018-12-06 09:00] VITALS: BP 120/66
[2018-12-06] MEDS: METOPROLOL TARTRATE 25 MG TAB PO SCH ×2 (09:00→17:00)
[2018-12-06] MEDS: FERROUS SULFATE 325 MG TAB PO SCH (09:00)
[2018-12-06] MEDS ORDERED: CALCIUM CARBONATE 500 MG CHEWABLE TABS PO SCH (09:00)
[2018-12-06] MEDS: LORATADINE 10 MG TAB PO SCH (09:00)
[2018-12-06] MEDS: TIZANIDINE HCL 4 MG TAB PO SCH ×3 (09:00→21:44)
[2018-12-06] MEDS ORDERED: FLUTICASONE PROPIONATE NASAL SPRAY NS SCH (09:00)
[2018-12-06] MEDS: ASCORBIC ACID 500 MG TAB PEG SCH ×3 (09:00→21:43)
[2018-12-06] MEDS: OMEGA 3 POLYUNSAT FATTY ACIDS 1000 MG SOFTGEL PO SCH (09:00)
[2018-12-06] MEDS: CITALOPRAM HYDROBROMIDE 20 MG TAB PO SCH (09:00)
[2018-12-06] MEDS: CALCIUM CARBONATE 500 MG CHEWABLE TABS PO SCH (09:00)
[2018-12-06] MEDS: GABAPENTIN 300 MG CAP PO SCH (09:00)
[2018-12-06] MEDS ORDERED: NON-FORMULARY MEDICATION (Citalopram Hydrobromide (Citalopram Hbr) 40 MG) PO SCH (09:00)
[2018-12-06] MEDS ORDERED: GARLIC 2000 MG PO SCH (09:00)
[2018-12-06] MEDS: MOVANTIK 25 MG PO SCH (09:00)
[2018-12-06] MEDS: FLUTICASONE PROPIONATE NASAL SPRAY NS SCH (09:00)
[2018-12-06] MEDS ORDERED: DHA PO SCH (09:00)
[2018-12-06] MEDS ORDERED: SIMVASTATIN 20 MG TAB PO SCH (09:00)
[2018-12-06] MEDS ORDERED: FISH OIL PO SCH (09:00)
[2018-12-06] MEDS: HYDROCHLOROTHIAZIDE 25 MG TAB PO SCH (09:00)
[2018-12-06] MEDS: PANTOPRAZOLE SOD 40 MG TABEC PO SCH (09:00)
[2018-12-06] MEDS: ROFLUMILAST 250 MCG PO SCH (09:00)
[2018-12-06] MEDS: GARLIC 2000 MG PO SCH (09:00)
[2018-12-06] MEDS ORDERED: HYDROCHLOROTHIAZIDE 1.5 MG PO SCH (09:00)
[2018-12-06] MEDS: PRAMIPEXOLE DIHYDROCHLORIDE 0.25 MG TAB PO SCH (09:00)
[2018-12-06] MEDS: ASPIRIN 81 MG CHEW TAB PO SCH (09:00)
[2018-12-06] MEDS ORDERED: EPA PO SCH (09:00)
[2018-12-06] MEDS: CEFTRIAXONE SOD 1 GM/NS 50 ML 50 ML IV SCH (10:30)
[2018-12-06] MEDS: AZITHROMYCIN 500MG/NS 250 ML 250 ML IV SCH (11:00)
[2018-12-06 12:00] VITALS: BP 94/53
--- NOTE | 2018-12-06 15:30 | NUR ---
Visit made by the Spiritual Care Department Pastoral Visitor, Jane East. PV provided pastoral presence, prayer, hospitality, and supportive listening. Pastoral Visitor informed pt/family of the scope of Accounting Representative Services and availability. TARA MORALES Dental Service Technician Spiritual Care Department O: [phone] Pager: [phone] ([phone] calling from)
--- NOTE | 2018-12-06 15:43 | History and Physical ---
REASON FOR ADMISSION: The patient came out of town to visit her sister here and went to acute exacerbation of COPD with hypoxia. HISTORY OF PRESENT ILLNESS: The patient is a 68-year-old female. The patient has oxygen support with advanced COPD, came in with increasing shortness of breath to the emergency room after she was visiting her sister here. The patient was wheezing, hypoxic. The patient is stable. The patient was given multiple nebulizer treatment and IV steroids, but did not improve. The patient now admitted for evaluation. CT scan of the chest showed that the patient may have pneumonitis or bronchitis. The patient is on antibiotics, steroids, and admitted to the hospital. PAST MEDICAL HISTORY: Advanced COPD, hypertension, and coronary artery disease. PAST SURGICAL HISTORY: Cholecystectomy, hysterectomy, lower back surgery, and left elbow replacement. SOCIAL HISTORY: The patient is an everyday smoker, 1-2 packs per day for many many years. She does not drink alcohol. No regular drugs. ALLERGIES: NO KNOWN ALLERGIES. HOME MEDICATIONS: List reviewed. REVIEW OF SYSTEMS: Shortness of breath and wheezing. PHYSICAL EXAMINATION: VITAL SIGNS: Temperature is 98, blood pressure 122/66, pulse rate 69, and respirations 18. GENERAL: The patient is not in acute distress. HEENT: Normocephalic and atraumatic. Pupils reactive. Anicteric. NECK: Supple grossly. PULMONARY: Diminished breath sounds bilaterally with coarse and rhonchi. CARDIOVASCULAR: S1 and S2. Regular rate and rhythm. ABDOMEN: Soft, nontender, and non-distention. EXTREMITIES: No gross cyanosis or edema. NEUROLOGIC: No gross focal deficit. LABORATORY DATA: Sodium is 142, potassium 4.4, chloride 96, bicarb 36, BUN 23, creatinine 0.9, and glucose 91. WBC is 9.05, hemoglobin 11.4, hematocrit 35, and platelets is 229. IMPRESSION: 1. Acute exacerbation of chronic obstructive pulmonary disease/emphysema. 2. Acute hypoxia. 3. Acute bronchitis and pneumonitis. PLAN: Continue with antibiotics as already written. IV steroids. Nebulizer treatment. The patient is already admitted. Resume home medication. MD CYN Subramanian/VALENTIN /[id number]
[2018-12-06 16:00] VITALS: BP 114/79
--- NOTE | 2018-12-06 18:41 | NUR ---
PT RESTING ON BED BED SIDE REPORT GIVEN TO ONCOMING NURSE
--- NOTE | 2018-12-06 19:05 | NUR ---
Report received and walking rounds complete. Pt resting in bed and in no apparent distress. All safety measures ensured and pt call liz near. Pt encouraged to use call liz for assistance.
[2018-12-06 20:00] VITALS: BP 120/70
[2018-12-06] MEDS: TRAZODONE HCL 50 MG TAB PO SCH (21:43)
[2018-12-06] MEDS: HYDROXYZINE HCL 25 MG TAB PO SCH (21:43)
[2018-12-06] MEDS: SIMVASTATIN 20 MG TAB PO SCH (21:44)
[2018-12-07] VITALS: BP 110/62
[2018-12-07] MEDS: ALBUTEROL/IPRATROPIUM 3 ML NEB NEB SCH ×2 (00:47→07:06)
[2018-12-07] MEDS: METHYLPREDNISOLONE SOD SUCC 40 MG/ML VIAL 1ML IV SCH ×2 (03:18→08:46)
[2018-12-07 04:00] VITALS: BP 128/73
[2018-12-07] MEDS: [UNRECOGNIZED DRUG - OTHER] IH SCH (06:00)
--- NOTE | 2018-12-07 07:24 | NUR ---
Walking rounds complete and report given to day shift RN
[2018-12-07 08:00] VITALS: BP 132/68
[2018-12-07] MEDS: CITALOPRAM HYDROBROMIDE 20 MG TAB PO SCH (08:46)
[2018-12-07] MEDS: GARLIC 2000 MG PO SCH (08:46)
[2018-12-07] MEDS: ROFLUMILAST 250 MCG PO SCH (08:46)
[2018-12-07] MEDS: FLUTICASONE PROPIONATE NASAL SPRAY NS SCH (08:46)
[2018-12-07] MEDS: LORATADINE 10 MG TAB PO SCH (08:46)
[2018-12-07] MEDS: FERROUS SULFATE 325 MG TAB PO SCH (08:46)
[2018-12-07] MEDS: ASPIRIN 81 MG CHEW TAB PO SCH (08:46)
[2018-12-07] MEDS: HYDROCHLOROTHIAZIDE 25 MG TAB PO SCH (08:46)
[2018-12-07] MEDS: ASCORBIC ACID 500 MG TAB PEG SCH (08:46)
[2018-12-07] MEDS: MOVANTIK 25 MG PO SCH (08:46)
[2018-12-07] MEDS: PRAMIPEXOLE DIHYDROCHLORIDE 0.25 MG TAB PO SCH (08:47)
[2018-12-07] MEDS: GABAPENTIN 300 MG CAP PO SCH (08:47)
[2018-12-07] MEDS: METOPROLOL TARTRATE 25 MG TAB PO SCH (08:47)
[2018-12-07] MEDS: OMEGA 3 POLYUNSAT FATTY ACIDS 1000 MG SOFTGEL PO SCH (08:47)
[2018-12-07] MEDS: TIZANIDINE HCL 4 MG TAB PO SCH (08:47)
[2018-12-07] MEDS: CALCIUM CARBONATE 500 MG CHEWABLE TABS PO SCH (08:47)
[2018-12-07] MEDS: PANTOPRAZOLE SOD 40 MG TABEC PO SCH (08:47)
[2018-12-07] MEDS ORDERED: DOXYCYCLINE MO100 M1 PO (10:52)
[2018-12-07] MEDS ORDERED: TESSALON PERLE100 MG PO (10:52)
--- NOTE | 2018-12-07 11:35 | NUR ---
patient discharged home, prescription given, IV canula removed with tip intact, no ss of infiltration noted, tele box returned, patient not in any distress, transported via [facility] to [facility]
--- NOTE | 2018-12-08 01:58 | Discharge Summary ---
FINAL DIAGNOSES: 1. Acute exacerbation of chronic obstructive pulmonary disease. 2. Acute bronchitis. 3. Acute hypoxia. SUMMARY: A 68-year-old female, came in with acute hypoxia, increasing shortness of breath, wheezing, failed treatment on her home regimen. The patient was visiting her sister from out of town. The patient was hypoxic. She was placed on nebulizer treatment, IV steroids, and antibiotics. She is doing much better now. The patient is stable, discharged home. Resume her home medication. She will take Medrol Dosepak, doxycycline, and Tessalon Perles. Prescription was given. The patient is stable, discharged home today. MD CYN Subramanian/VALENTIN /[id number]
== END 2018-12-07 11:23 | disposition home or self-care (01) | DRG 178 ==
LOC: ER 19:20 → ERHOLD 22:48 → OBSVTOIN 12-05 09:05 → MED/SURG2 12-05 14:48
PROVIDERS: ADMIT Internal Medicine; ATTEND Internal Medicine
DX: J69.0 Pneumonitis due to inhalation of food and vomit (principal); J44.1 Chronic obstructive pulmonary disease with (acute) exacerbation; J90 Pleural effusion, not elsewhere classified; J44.0 Chronic obstructive pulmonary disease with (acute) lower respiratory infection; R09.02 Hypoxemia; K44.9 Diaphragmatic hernia without obstruction or gangrene; J20.9 Acute bronchitis, unspecified
CPT/HCPCS: 36415; 71045; 71250; 80053; 82550; 82553; 83880; 84484; 85025; 93005; 94640; 99284; G0378; J0456; J0696; J2405; J2920; J2930; J3410